=== PATIENT | male | born 1960 | race Caucasian/White ===

== ENCOUNTER → 2016-08-06 | Outpatient (CLI) | payer BC ==
[~2016-08-06] MED LIST: AMOXICILLIN 50500 MG PO; ASPIR LOW81 MG PO; LISINOPRIL AND1 TAB PO; NORCO 325 MG-51 TA1 PO; NORCO 325 MG-51 TAB PO; XARELTO15 MG PO
== END ==
LOC: RAD 09:31
DX: M25.552 Pain in left hip (principal); M16.12 Unilateral primary osteoarthritis, left hip

== ENCOUNTER → 2016-08-07 | Outpatient (CLI) | payer BC | LOC: RAD 11:55 | DX: M25.552 Pain in left hip (principal) ==

== ENCOUNTER → 2016-10-23 | Outpatient (CLI) | payer BC ==
[2016-02-09 23:24] VITALS: BP 134/72
== END ==
LOC: RAD 13:00
CPT/HCPCS: J3301; Q9967

== ENCOUNTER → 2017-04-20 | Outpatient (CLI) | payer BC ==
[~2017-04-20] VITALS: Ht 177.8 cm; Wt 95.0 kg
[~2017-04-20] MED LIST changes: +HYDROCHLOROTHIA1 T14 PO; -LISINOPRIL AND1 TAB PO; +MOBIC7.5 MG PO; +XARELTO20 MG PO
[2017-04-20 08:53] LABS: PROTHROMBIN TIME 10.6 SECONDS (9.0-12.0)
[2017-04-20 08:57] LABS: ALBUMIN 3.8 g/dL (3.5-5.0); BUN/CREATININE RATIO 15.7 (6.0-26.0); CALCIUM 9.3 mg/dL (8.4-10.2); POTASSIUM 4.1 mmol/L (3.6-5.0); TOTAL BILIRUBIN 0.8 mg/dL (0.2-1.3); TOTAL PROTEIN 6.7 g/dL (6.3-8.2)
[2017-04-20 09:11] LABS: HEMATOCRIT 40.3 % (42.0-52.0); HEMOGLOBIN 13.8 g/dL (13.5-18.0); MEAN CELL VOLUME 93 fl (78-100); MEAN CORPUSCULAR HEMOGLOBIN 32 pg (27-31); MEAN CORPUSCULAR HGB CONC 34 g/dL (33-37); MEAN PLATELET VOLUME 10.4 fl (7.4-10.4); PLATELET COUNT 231 K/mm3 (130-400); RED BLOOD COUNT 4.33 M/mm3 (4.20-5.60); RED CELL DISTRIBUTION WIDTH 12.6 % (11.5-14.5); WHITE BLOOD COUNT 4.5 K/mm3 (4.8-10.8)
[2017-04-20 09:23] VITALS: BP 137/89
[2017-04-20 09:31] LABS: LYMPHOCYTE 37 % (20-51); MONOCYTE 12 % (3-10); NEUTROPHILS 50 % (42-75)
[2017-04-20 09:55] LABS: URINE APPEARANCE CLEAR; URINE BILIRUBIN NEGATIVE (NEGATIVE); URINE BLOOD NEGATIVE (NEGATIVE); URINE COLOR YELLOW; URINE GLUCOSE NEGATIVE (NEGATIVE); URINE KETONE NEGATIVE (NEGATIVE); URINE LEUKOCYTE ESTERASE NEGATIVE (NEGATIVE); URINE NITRATE NEGATIVE (NEGATIVE); URINE PROTEIN(semi-quant) NEGATIVE (NEGATIVE); URINE UROBILINOGEN NORMAL (NORMAL); URINE WBC 0-1 /hpf (0-3)
== END ==
LOC: AMSURD 08:10
PROVIDERS: Family Medicine
DX: Z01.818 Encounter for other preprocedural examination (principal)

== ENCOUNTER → 2017-05-15 | Outpatient (CLI) | payer BC ==
[2017-04-20 09:23] VITALS: BP 137/89
== END ==
LOC: PT 08:52
DX: Z01.818 Encounter for other preprocedural examination (principal); M16.12 Unilateral primary osteoarthritis, left hip

== ENCOUNTER 2017-07-22 10:30 | Outpatient (RCR) | payer BC ==
[2017-04-20 09:23] VITALS: BP 137/89
== END 2017-08-20 | disposition home or self-care (01) ==
LOC: PT
DX: Z47.1 Aftercare following joint replacement surgery (principal); Z96.642 Presence of left artificial hip joint

== ENCOUNTER → 2017-08-05 | Outpatient (CLI) | payer BC ==
[2017-04-20 09:23] VITALS: BP 137/89
== END ==
LOC: CANPRECLI → RAD 08:00
DX: Z47.1 Aftercare following joint replacement surgery (principal); Z96.642 Presence of left artificial hip joint; M13.851 Other specified arthritis, right hip

== ENCOUNTER 2017-09-30 11:30 | Outpatient (RCR) | payer BC ==
[2017-04-20 09:23] VITALS: BP 137/89
== END 2017-09-30 12:00 | disposition home or self-care (01) ==
LOC: PT 11:30
DX: M75.21 Bicipital tendinitis, right shoulder (principal); X50.3XXD Overexertion from repetitive movements, subsequent encounter; Y93.H9 Activity, other involving exterior property and land maintenance, building and construction

== ENCOUNTER → 2018-08-18 | Outpatient (CLI) | payer BC ==
[2017-04-20 09:23] VITALS: BP 137/89
== END ==
LOC: RAD 09:00
DX: M16.11 Unilateral primary osteoarthritis, right hip (principal); Z96.642 Presence of left artificial hip joint

== ENCOUNTER → 2018-10-05 | Outpatient (CLI) | payer BC ==
[2017-04-20 09:23] VITALS: BP 137/89
[2018-10-05 14:19] LABS: HEMATOCRIT 41.7 % (42.0-52.0); HEMOGLOBIN 14.3 g/dL (13.5-18.0); MEAN CELL VOLUME 90 fl (78-100); MEAN CORPUSCULAR HEMOGLOBIN 31 pg (27-31); MEAN CORPUSCULAR HGB CONC 34 g/dL (33-37); MEAN PLATELET VOLUME 10.4 fl (7.4-10.4); PLATELET COUNT 211 K/mm3 (130-400); RED BLOOD COUNT 4.64 M/mm3 (4.20-5.60); RED CELL DISTRIBUTION WIDTH 12.7 % (11.5-14.5); WHITE BLOOD COUNT 4.7 K/mm3 (4.8-10.8)
[2018-10-05 14:41] LABS: ALBUMIN 4.2 g/dL (3.5-5.0); CALCIUM 9.9 mg/dL (8.3-10.5); TOTAL BILIRUBIN 0.5 mg/dL (0.2-1.2); TOTAL PROTEIN 7.1 g/dL (6.4-8.3)
[2018-10-05 15:00] LABS: PROTHROMBIN TIME 11.6 SECONDS (9.0-12.0)
[2018-10-05 15:28] LABS: LYMPHOCYTE 29 % (20-51); MONOCYTE 12 % (3-10); NEUTROPHILS 56 % (42-75)
== END ==
LOC: LAB 14:08
PROVIDERS: Family Medicine
DX: Z00.00 Encounter for general adult medical examination without abnormal findings (principal); Z01.818 Encounter for other preprocedural examination

== ENCOUNTER → 2018-10-22 | Outpatient (CLI) | payer BC ==
[2017-04-20 09:23] VITALS: BP 137/89
== END ==
LOC: PT 09:24
DX: Z47.1 Aftercare following joint replacement surgery (principal); Z96.611 Presence of right artificial shoulder joint

== ENCOUNTER 2019-01-28 10:00 | Outpatient (RCR) | payer BC ==
[2017-04-20 09:23] VITALS: BP 137/89
== END 2019-01-30 | disposition still patient (30) ==
LOC: PT
DX: M25.511 Pain in right shoulder (principal); Z98.890 Other specified postprocedural states

== ENCOUNTER 2019-03-03 11:30 | Outpatient (RCR) | payer BC ==
[2017-04-20 09:23] VITALS: BP 137/89
== END 2019-03-03 12:00 | disposition still patient (30) ==
LOC: PT 11:30
DX: M25.511 Pain in right shoulder (principal); Z98.890 Other specified postprocedural states

== ENCOUNTER → 2020-04-16 | Outpatient (CLI) | payer BC ==
[2017-04-20 09:23] VITALS: BP 137/89
== END ==
LOC: RAD 16:18
DX: I50.22 Chronic systolic (congestive) heart failure (principal)

== ENCOUNTER → 2021-01-23 | Outpatient (CLI) | payer BC ==
[2021-01-23 11:12] LABS: BASO # 0.02 (0.02-0.10); EOS # 0.09 (0.04-0.40); EOS % 1.7 % (0.0-4.0); HEMATOCRIT 41.5 % (42.0-52.0); HEMOGLOBIN 14.1 g/dL (13.5-18.0); LYMPH# 1.69 (1.50-4.00); MEAN CELL VOLUME 93 fl (78-100); MEAN CORPUSCULAR HEMOGLOBIN 32 pg (27-31); MEAN CORPUSCULAR HGB CONC 34 g/dL (33-37); MEAN PLATELET VOLUME 9.4 fl (7.4-10.4); MONO # 0.63 (0.20-0.80); NEU # 2.71 (1.40-6.50); PLATELET COUNT 210 K/mm3 (130-400); RED BLOOD COUNT 4.45 M/mm3 (4.20-5.60); RED CELL DISTRIBUTION WIDTH 12.6 % (11.5-14.5); WHITE BLOOD COUNT 5.2 K/mm3 (4.8-10.8)
[2021-01-23 11:22] LABS: POTASSIUM 3.5 mmol/L (3.5-5.1)
[2021-01-23 11:24] LABS: CALCIUM 9.4 mg/dL (8.3-10.5)
[2021-01-23 11:27] LABS: TOTAL BILIRUBIN 0.4 mg/dL (0.2-1.2)
== END ==
LOC: LAB 10:59
PROVIDERS: Family Medicine
DX: Z00.00 Encounter for general adult medical examination without abnormal findings (principal); I10 Essential (primary) hypertension

== ENCOUNTER → 2021-09-16 | Outpatient (CLI) | payer BC ==
[2021-09-16 11:37] LABS: BASO # 0.02 K/mm3 (0.02-0.10); EOS # 0.03 K/mm3 (0.04-0.40); EOS % 0.7 % (0.0-4.0); HEMATOCRIT 40.7 % (42.0-52.0); HEMOGLOBIN 13.9 g/dL (13.5-18.0); LYMPH# 1.27 K/mm3 (1.50-4.00); MEAN CELL VOLUME 92 fl (78-100); MEAN CORPUSCULAR HEMOGLOBIN 31 pg (27-31); MEAN CORPUSCULAR HGB CONC 34 g/dL (33-37); MEAN PLATELET VOLUME 9.3 fl (7.4-10.4); MONO # 0.45 K/mm3 (0.20-0.80); PLATELET COUNT 223 K/mm3 (130-400); RED BLOOD COUNT 4.43 M/mm3 (4.20-5.60); RED CELL DISTRIBUTION WIDTH 12.3 % (11.5-14.5); WHITE BLOOD COUNT 4.6 K/mm3 (4.8-10.8)
[2021-09-16 12:26] LABS: POTASSIUM 4.5 mmol/L (3.5-5.1)
[2021-09-16 12:27] LABS: ALBUMIN 4.3 g/dL (3.5-5.0)
[2021-09-16 12:28] LABS: CALCIUM 10.1 mg/dL (8.3-10.5)
[2021-09-16 12:29] LABS: TOTAL PROTEIN 7.3 g/dL (6.4-8.3)
[2021-09-16 12:31] LABS: TOTAL BILIRUBIN 0.5 mg/dL (0.2-1.2)
== END ==
LOC: LAB 11:14
PROVIDERS: Family Medicine
DX: Z00.00 Encounter for general adult medical examination without abnormal findings (principal); M16.11 Unilateral primary osteoarthritis, right hip; E78.5 Hyperlipidemia, unspecified; E66.9 Obesity, unspecified; Z98.1 Arthrodesis status

== ENCOUNTER → 2022-01-29 | Outpatient (CLI) | payer BC ==
[2022-01-29 09:14] LABS: ALBUMIN 4.1 g/dL (3.5-5.0); POTASSIUM 4.4 mmol/L (3.5-5.1)
[2022-01-29 09:15] LABS: CALCIUM 9.4 mg/dL (8.3-10.5)
[2022-01-29 09:17] LABS: TOTAL PROTEIN 6.9 g/dL (6.4-8.3)
[2022-01-29 09:19] LABS: TOTAL BILIRUBIN 0.7 mg/dL (0.2-1.2)
[2022-01-29 10:08] LABS: BASO # 0.02 K/mm3 (0.02-0.10); EOS # 0.04 K/mm3 (0.04-0.40); EOS % 0.9 % (0.0-4.0); HEMATOCRIT 42.5 % (42.0-52.0); HEMOGLOBIN 14.4 g/dL (13.5-18.0); LYMPH# 1.11 K/mm3 (1.50-4.00); MEAN CELL VOLUME 94 fl (78-100); MEAN CORPUSCULAR HEMOGLOBIN 32 pg (27-31); MEAN CORPUSCULAR HGB CONC 34 g/dL (33-37); NEU # 2.74 K/mm3 (1.40-6.50); PLATELET COUNT 251 K/mm3 (130-400); RED BLOOD COUNT 4.54 M/mm3 (4.20-5.60); RED CELL DISTRIBUTION WIDTH 12.4 % (11.5-14.5); WHITE BLOOD COUNT 4.3 K/mm3 (4.8-10.8)
== END ==
LOC: LAB 08:42
PROVIDERS: Family Medicine
DX: Z00.00 Encounter for general adult medical examination without abnormal findings (principal); M19.90 Unspecified osteoarthritis, unspecified site; I10 Essential (primary) hypertension; E78.5 Hyperlipidemia, unspecified; E66.9 Obesity, unspecified; M25.551 Pain in right hip

== ENCOUNTER → 2022-06-14 | Outpatient (CLI) | payer BC | LOC: AMSURD 06-13 18:27 | DX: Z01.89 Encounter for other specified special examinations (principal) ==

== ENCOUNTER 2022-07-09 08:45 | Outpatient (RCR) | payer BC | END 2022-08-01 | disposition home or self-care (01) | LOC: PT | DX: Z96.641 Presence of right artificial hip joint (principal) ==